=== PATIENT | female | born 1955 | race Caucasian/White ===

== ENCOUNTER 2017-01-29 17:02 | Emergency (ER) | payer MEDICARE ==
[~2017-01-29] VITALS: Ht 162.6 cm; Wt 70.0 kg
[~2017-01-29 17:02] MED LIST: DIVA500T4 PO; DRAMAMINE PO; LITH300T30 PO; TOPI200T25 PO
[2017-01-29] MEDS ORDERED: SODIUM CHLORIDE 0.9% 1,000 ML IV ONE (17:44)
[2017-01-29] MEDS ORDERED: MORPHINE SULFATE 4 MG/ML, 1ML ONE ×2 (17:49→19:30)
[2017-01-29] MEDS: MORPHINE SULFATE 4 MG/ML, 1ML IVPush PRN ×2 (18:00→19:34)
[2017-01-29 18:23] LABS: ASPARTATE AMINO TRANSFERASE 16 U/L (15-37); BLOOD UREA NITROGEN 23 mg/dL (7-18)
[2017-01-29 18:30] LABS: IS PT STATUS REG ER OR PRE ER? YES
[2017-01-29] MEDS ORDERED: OXYcodone/APAP 10/325MG TABLET PO ONE (20:30)
[2017-01-29] MEDS ORDERED: OXYcodone/APAP 10/325MG TABLET ONE (21:04)
[2017-01-29 21:17] VITALS: BP 114/47
== END 2017-01-29 21:19 | disposition home or self-care (01) ==
LOC: ED 21:13
DX: S22.20XA Unspecified fracture of sternum, initial encounter for closed fracture (principal); E03.9 Hypothyroidism, unspecified; E86.0 Dehydration; N39.0 Urinary tract infection, site not specified; Y99.8 Other external cause status; Y92.89 Other specified places as the place of occurrence of the external cause; Y93.89 Activity, other specified; W18.39XA Other fall on same level, initial encounter
CPT/HCPCS: 36415; 70450; 71250; 80053; 81001; 83880; 84484; 85025; 93005; 96361; 96374; 96376; 99285; J7030

== ENCOUNTER 2017-03-20 02:12 | Emergency (ER) | payer MEDICARE ==
[~2017-03-20] VITALS: Ht 162.6 cm; Wt 68.0 kg
[2017-03-20 02:14] VITALS: BP 109/56
[2017-03-20 02:44] LABS: PATH.CAST-FLAG NOT PRESENT; SPERM-FLAG NOT PRESENT; SRC-FLAG NOT PRESENT; XTAL-FLAG NOT PRESENT; YLC-FLAG NOT PRESENT
[2017-03-20] MEDS ORDERED: CEFTRIAXONE 1,000 MG ONE (02:52)
[2017-03-20] MEDS ORDERED: CEFTRIAXONE 1,000 MG IM ONE (03:00)
[2017-03-20 03:39] LABS: HEMATOCRIT 39.8 % (34.6-47.8); HEMOGLOBIN 13.3 g/dL (11.7-16.4); WHITE BLOOD COUNT 6.3 x10^3/uL (3.4-10)
[2017-03-20 03:49] LABS: BLOOD UREA NITROGEN 19 mg/dL (7-18)
== END 2017-03-20 04:19 | disposition home or self-care (01) ==
LOC: ED 02:20
DX: S29.012A Strain of muscle and tendon of back wall of thorax, initial encounter (principal); N39.0 Urinary tract infection, site not specified; N30.91 Cystitis, unspecified with hematuria; E03.9 Hypothyroidism, unspecified; G43.909 Migraine, unspecified, not intractable, without status migrainosus; X58.XXXA Exposure to other specified factors, initial encounter; Y93.89 Activity, other specified; Y92.89 Other specified places as the place of occurrence of the external cause; Y99.8 Other external cause status; Z91.14 Patient's other noncompliance with medication regimen
CPT/HCPCS: 36415; 71020; 72072; 80048; 81001; 85025; 87086; 96372; 99285; J0696

== ENCOUNTER → 2017-08-29 | Outpatient (CLI) | payer MEDICARE | END | disposition home or self-care (01) | LOC: CFH 13:32 | PROVIDERS: ATTEND Family Medicine | DX: Z13.820 Encounter for screening for osteoporosis (principal); N63.20 Unspecified lump in the left breast, unspecified quadrant; N63.21 Unspecified lump in the left breast, upper outer quadrant; C50.919 Malignant neoplasm of unspecified site of unspecified female breast; M81.0 Age-related osteoporosis without current pathological fracture; R29.6 Repeated falls; Z85.3 Personal history of malignant neoplasm of breast | CPT/HCPCS: 77080; 77066 ==

== ENCOUNTER → 2018-03-15 | Outpatient (CLI) | payer MEDICARE | END | disposition home or self-care (01) | LOC: CFH 12:50 | PROVIDERS: ATTEND Family Medicine | DX: N64.4 Mastodynia (principal); R07.81 Pleurodynia; Z85.3 Personal history of malignant neoplasm of breast; Z90.12 Acquired absence of left breast and nipple | CPT/HCPCS: 77065 ==

== ENCOUNTER → 2018-10-11 | Outpatient (CLI) | payer MEDICARE | END | disposition home or self-care (01) | LOC: CFH 12:20 | PROVIDERS: ATTEND Family Medicine | DX: M81.0 Age-related osteoporosis without current pathological fracture (principal); E03.9 Hypothyroidism, unspecified; R74.8 Abnormal levels of other serum enzymes; R07.81 Pleurodynia | CPT/HCPCS: 77080 ==

== ENCOUNTER 2019-02-12 10:11 | Outpatient (CLI) | payer MEDICARE ==
[2019-02-12] MEDS ORDERED: OMNIPAQUE 350 MG/ML, 100ML BOTTLE ONE (14:38)
== END 2019-02-12 23:59 | disposition home or self-care (01) ==
LOC: CFH 10:11
PROVIDERS: ATTEND Licensed Practical Nurse
DX: Z12.31 Encounter for screening mammogram for malignant neoplasm of breast (principal); K76.0 Fatty (change of) liver, not elsewhere classified; Z87.891 Personal history of nicotine dependence
CPT/HCPCS: 74177; 77063; 77067; 82565; G0297; Q9967

== ENCOUNTER 2019-03-04 10:45 | Emergency (ER) | payer MEDICARE ==
[~2019-03-04] VITALS: Ht 162.6 cm; Wt 89.9 kg
[2019-03-04 10:53] VITALS: BP 105/75
== END 2019-03-04 12:19 | disposition home or self-care (01) ==
LOC: ED 12:10
DX: S42.294A Other nondisplaced fracture of upper end of right humerus, initial encounter for closed fracture (principal); F17.200 Nicotine dependence, unspecified, uncomplicated; W18.2XXA Fall in (into) shower or empty bathtub, initial encounter; Y93.89 Activity, other specified; Y92.009 Unspecified place in unspecified non-institutional (private) residence as the place of occurrence of the external cause; Y99.8 Other external cause status
CPT/HCPCS: 29105; 99283

== ENCOUNTER → 2020-05-26 | Outpatient (CLI) | payer MEDICARE ==
[~2020-05-26] MED LIST changes: +ASPI-515 PO; +ATOR20TA PO; +GABA300C PO; +GABA600T PO; +LEVO75TA5 PO; +MEMA10TA PO; +NICO-487 TD; +OMEP20TA62 PO; +OSEL75CA26 PO; +TRAZ-175 PO
== END | disposition home or self-care (01) ==
LOC: CFH 12:23
PROVIDERS: ATTEND Family Medicine
DX: C50.919 Malignant neoplasm of unspecified site of unspecified female breast (principal); R92.2 Inconclusive mammogram
CPT/HCPCS: 76642; 77066; G0279